=== PATIENT | female | born 1980 | race Caucasian/White ===

== ENCOUNTER 2016-10-21 10:55 | Emergency (ER) | payer MEDICARE ==
[~2016-10-21 10:55] MED LIST: AMBIEN DPS10 MG PO; ATIVAN-DPS1 MG PO; BACTRIM DS DPS1 TAB PO; COLACE-DPS100 MG PO; FLEXERIL-DPS10 MG PO; MIRALAX PACKET17 GM PO; PERCOCET 7.5 DP1 TAB PO; TYLENOL DPS325 MG PO
--- NOTE | 2016-10-25 18:43 | ER ---
ADMIT: 10/21/2016 RM/LOC: ER [facility] MR#: [id number] [address] [address] [address] [place] [address] Emergency Room Report SEX: F AGE: 36 : 1980 DATE: 10/21/2016 The patient is a 36-year-old female, who had a prior visit to the ER for rib pain and presents today with 3 days of pain. Apparently, she had gone back to working out at the gym and over did it even though she has had some fractured ribs a month and a half or two ago. She has been taking Percocet for her pain. She is out of the Percocet. She has a history of anxiety, tubal ligation, spina bifida. She takes Ativan for her anxiety. PHYSICAL EXAMINATION: There is a slight inflammation in the left back costovertebral angle. Oriented x4. Skin intact. I did do x-rays, which did not show anything acute. All the fractures are healing nicely. She was given a shot of Toradol. CLINICAL IMPRESSION: Left rib strain secondary to fracture. Advised not to get onto working pretty hard at the gym for now. Given a prescription for Toradol p.o. and follow up. See T-sheet for further information. ROWAN Guzman / Matthew Abdi MD / bol JOB #: [id number] CC: Matthew bAdi MD, Attending Physician Dorian Hanna MD, Family Physician
== END 2016-10-21 13:10 | disposition home or self-care (01) ==
LOC: ER 10:55
DX: S29.011A Strain of muscle and tendon of front wall of thorax, initial encounter (principal); F41.9 Anxiety disorder, unspecified; Z87.81 Personal history of (healed) traumatic fracture; Z98.51 Tubal ligation status; Y93.89 Activity, other specified; Y92.39 Other specified sports and athletic area as the place of occurrence of the external cause

== ENCOUNTER 2016-12-05 00:33 | Emergency (ER) | payer MEDICARE ==
--- NOTE | 2016-12-05 07:01 | ER ---
ADMIT: 12/05/2016 RM/LOC: ER [facility] MR#: [id number] [address] [address] [address] [place] [id number] Emergency Room Report SEX: F AGE: 36 : 1980 DATE: 12/05/2016 The patient is a 36-year-old female with known left ovarian teratoma, complaining of right lower quadrant abdominal pain without fevers, chills, nausea, vomiting, diarrhea, or urgency. Exam remarkable for nontoxic, afebrile female. No acute distress. Normal CBC except hemoglobin 11.6, lactic 1.5, CRP 0.37, glucose 118, lipase 181. HCG less than 1. Urine negative. UA; 2 WBCs, 7 RBCs, positive nitrite. Patient is menstruating. The patient was given 1 liter of fluid, Zofran, Toradol, Dilaudid with relief of pain. Follow up Dr. Jennings as needed. Yobany Carreon MD/ carlos JOB #: [id number] CC: Yobany Carreon MD, Attending Physician Piedad Jennings MD, Family Physician Piedad Jennings MD
== END 2016-12-05 02:48 | disposition home or self-care (01) ==
LOC: ER 00:33
DX: R10.31 Right lower quadrant pain (principal); F17.210 Nicotine dependence, cigarettes, uncomplicated; Z79.899 Other long term (current) drug therapy